=== PATIENT | female | born 1955 | race Caucasian/White ===

== ENCOUNTER 2021-10-06 16:54 | Emergency (ER) | payer OTHER, MEDICAID ==
[~2021-10-06] VITALS: Ht 154.9 cm; Wt 86.2 kg
[2021-10-06 17:14] VITALS: BP_SYST 150
[2021-10-06] MEDS ORDERED: IBUP-1969 PO (18:58)
[2021-10-06 19:07] VITALS: BP_SYST 150
== END 2021-10-06 19:07 | disposition home or self-care (01) ==
LOC: SED 16:54
DX: S16.1XXA Strain of muscle, fascia and tendon at neck level, initial encounter (principal); S00.03XA Contusion of scalp, initial encounter; W17.89XA Other fall from one level to another, initial encounter; Y93.89 Activity, other specified; Y92.89 Other specified places as the place of occurrence of the external cause; Y99.8 Other external cause status
CPT/HCPCS: 70450-TC; 71045; 72125-TC; 76376; 99284

== ENCOUNTER 2022-12-02 22:41 | Emergency (ER) | payer OTHER ==
[~2022-12-02] VITALS: Ht 152.4 cm; Wt 68.9 kg
[~2022-12-02 22:41] MED LIST: IBUP-1969 PO
[2022-12-02 22:58] VITALS: BP_SYST 124
[2022-12-02] MEDS ORDERED: PANTOPRAZOLE SODIUM 40 MG/VIAL (PROTONIX) ONE (23:43)
[2022-12-02] MEDS ORDERED: NACL 0.9% 1,000 ML IV ONE (23:45)
[2022-12-02] MEDS ORDERED: PANTOPRAZOLE SODIUM 80 MG in NS 100 ML IVP ONE (23:45)
[2022-12-02] MEDS ORDERED: ONDANSETRON HCL 4 MG/2 ML VIAL IVP ONE (23:45)
[2022-12-03 00:22] LABS: CALCIUM 8.5 mg/dL (8.4-11.0); CREATININE 1.18 mg/dL (0.55-1.30)
[2022-12-03 00:28] LABS: BASOPHILS % (AUTO) 0.3 % (0.0-2.0); EOSINOPHILS % (AUTO) 0.1 % (0.0-4.0); HEMATOCRIT 36.5 % (36-48); HEMOGLOBIN 12.3 g/dL (12.0-16.0); LYMPHOCYTES # (AUTO) 0.4 K/uL (1.0-5.5); LYMPHOCYTES % (AUTO) 2.8 % (20.5-51.5); MEAN CORPUSCULAR HEMOGLOBIN 28 pg (27-31); MEAN CORPUSCULAR HGB CONC 34 % (32-36); MEAN CORPUSCULAR VOLUME 84 fL (79.0-98.0); MONOCYTES # (AUTO) 0.7 K/uL (0.0-1.0); MONOCYTES % (AUTO) 5.3 % (1.7-9.3); NEUTROPHILS # (AUTO) 12.8 K/uL (1.8-7.7); NEUTROPHILS % (AUTO) 91.5 % (40.0-70.0); PLATELET COUNT (AUTO) 195 K/uL (130-430); RED BLOOD CELL COUNT(AUTO) 4.34 MIL/uL (4.2-6.2); RED CELL DISTRIBUTION WIDTH 12.5 % (9.0-15.0)
[2022-12-03 00:38] LABS: ALBUMIN 3.6 g/dL (3.4-4.8); TOTAL BILIRUBIN 1.4 mg/dL (0.0-1.0)
[2022-12-03 00:54] LABS: BILIRUBIN,URINE NEGATIVE (NEGATIVE); BLOOD, URINE 3+ (NEGATIVE); CLARITY/URINE CLOUDY (CLEAR); COLOR,URINE YELLOW (YELLOW); GLUCOSE,URINE NEGATIVE (NEGATIVE); KETONES,URINE TRACE (NEGATIVE); LEUKOCYTE ESTERASE ,URINE TRACE (NEGATIVE); NITRITE, URINE POSITIVE (NEGATIVE); PH,URINE 8.5 (5.0-8.0); PROTEIN URINE NEGATIVE (NEGATIVE); UROBILINOGEN,URINE 0.2 (0.2-1.0)
[2022-12-03 01:16] LABS: BACTERIA,URINE MANY /HPF (None Seen)
[2022-12-03 01:17] LABS: RBC,URINE 20-50 /HPF (0-3)
[2022-12-03] MEDS ORDERED: cefTRIAXone 1 GM IVPB PREMIX 50 ML IV ONE ×2 (03:00→03:01)
[2022-12-03] MEDS ORDERED: ONDA-8 TL (03:26)
[2022-12-03] MEDS ORDERED: CIPR500T5 PO (03:26)
[2022-12-03 04:48] VITALS: BP_SYST 117
== END 2022-12-03 04:48 | disposition home or self-care (01) ==
LOC: SED 22:41
DX: N39.0 Urinary tract infection, site not specified (principal); R11.2 Nausea with vomiting, unspecified; R50.9 Fever, unspecified; R53.1 Weakness; E11.9 Type 2 diabetes mellitus without complications; Z79.899 Other long term (current) drug therapy
CPT/HCPCS: 99285; 74176; 96375; 96361; 80053; 81000; 82962; 85025; 87040; 87086; 87186; 36415; 76376; 83605; 96365; J2405; C9113; J7030; J0696

== ENCOUNTER 2022-12-16 15:08 | Emergency (ER) | payer OTHER ==
[~2022-12-16] VITALS: Ht 162.6 cm; Wt 72.6 kg
[~2022-12-16 15:08] MED LIST changes: +CIPR500T5 PO; +ONDA-8 TL
[2022-12-16 15:09] VITALS: BP_SYST 123
[2022-12-16 15:41] LABS: BASOPHILS % (AUTO) 0.3 % (0.0-2.0); EOSINOPHILS # (AUTO) 0.1 K/uL (0.0-0.4); EOSINOPHILS % (AUTO) 0.6 % (0.0-4.0); HEMATOCRIT 28.9 % (36-48); HEMOGLOBIN 10.1 g/dL (12.0-16.0); LYMPHOCYTES # (AUTO) 1.7 K/uL (1.0-5.5); LYMPHOCYTES % (AUTO) 21.6 % (20.5-51.5); MEAN CORPUSCULAR HEMOGLOBIN 29 pg (27-31); MEAN CORPUSCULAR HGB CONC 35 % (32-36); MEAN CORPUSCULAR VOLUME 83 fL (79.0-98.0); MONOCYTES # (AUTO) 0.5 K/uL (0.0-1.0); MONOCYTES % (AUTO) 6.2 % (1.7-9.3); NEUTROPHILS # (AUTO) 5.6 K/uL (1.8-7.7); NEUTROPHILS % (AUTO) 71.3 % (40.0-70.0); PLATELET COUNT (AUTO) 358 K/uL (130-430); RED BLOOD CELL COUNT(AUTO) 3.49 MIL/uL (4.2-6.2); RED CELL DISTRIBUTION WIDTH 12.2 % (9.0-15.0); WHITE BLOOD COUNT (AUTO) 7.8 K/uL (4.8-10.8)
[2022-12-16 15:58] LABS: ANION GAP 5 (5-15); CALCIUM 8.4 mg/dL (8.4-11.0); CHLORIDE 103 mmol/L (98-107); GFR AFRICAN AMERICAN 57 mL/min (>90); GLUCOSE 139 mg/dL (70-99); UREA NITROGEN, BLOOD 13 mg/dL (8-21)
[2022-12-16 16:03] LABS: ALANINE AMINOTRANSFERASE 23 U/L (12-78); ALBUMIN 2.8 g/dL (3.4-4.8); ASPARTATE AMINOTRANSFERASE 10 U/L (10-37); TOTAL BILIRUBIN 0.5 mg/dL (0.0-1.0)
[2022-12-16 17:41] VITALS: BP_SYST 123
== END 2022-12-16 17:41 | disposition home or self-care (01) ==
LOC: SED 15:08
DX: R06.02 Shortness of breath (principal); I95.89 Other hypotension; I10 Essential (primary) hypertension; E11.9 Type 2 diabetes mellitus without complications; Z79.899 Other long term (current) drug therapy
CPT/HCPCS: 36415; 71045; 80053; 82962; 83605; 83880; 84484; 85025; 93005; 99285

== ENCOUNTER 2022-12-27 21:01 | Emergency (ER) | payer OTHER ==
[~2022-12-27] VITALS: Ht 152.4 cm; Wt 70.8 kg
[2022-12-27 21:11] VITALS: BP_SYST 117
--- NOTE | 2022-12-27 21:11 | NUR ---
Triaged and placed patient back to the waiting room. No acute respiratory distress at this time. VSS. Informed patient to notify ED staff for any changes in condition or worsening of symptoms while waiting to be seen by a provider. Patient verbalized understanding.
[2022-12-27 21:28] LABS: BILIRUBIN,URINE NEGATIVE (NEGATIVE); BLOOD, URINE 3+ (NEGATIVE); CLARITY/URINE CLEAR (CLEAR); COLOR,URINE YELLOW (YELLOW); GLUCOSE,URINE NEGATIVE (NEGATIVE); KETONES,URINE NEGATIVE (NEGATIVE); LEUKOCYTE ESTERASE ,URINE TRACE (NEGATIVE); NITRITE, URINE NEGATIVE (NEGATIVE); PROTEIN URINE NEGATIVE (NEGATIVE); UROBILINOGEN,URINE 0.2 (0.2-1.0)
[2022-12-27 21:36] LABS: BACTERIA,URINE FEW /HPF (None Seen); MUCUS,URINE None Seen /LPF (None Seen); RBC,URINE 0-3 /HPF (0-3)
--- NOTE | 2022-12-27 21:48 | NUR ---
Patient placed in ER Hallway 2 for evaluation. Bed in lowest position with siderails up. Instructed to notify ED staff for any changes in condition or worsening of symptoms. Patient verbalized understanding.
--- NOTE | 2022-12-27 21:49 | NUR ---
Dr. MCNAMARA at bedside examining the patient.
[2022-12-27] MEDS ORDERED: cefTRIAXone 1 GM in LIDOCAINE 1%, 20 ML MDV 2.1 ML IM ONE (22:00)
[2022-12-27] MEDS ORDERED: NITR-85 PO (22:21)
[2022-12-27 22:23] VITALS: BP_SYST 132
--- NOTE | 2022-12-27 22:23 | NUR ---
Patient given written and verbal discharge instructions BY DR. MCNAMARA and verbalizes understanding. ER MD discussed with patient the results and treatment provided. Patient in stable condition. ID arm band removed. Rx of NITROFURANTOIN given. Patient educated on pain management and to follow up with PMD. Pain Scale 0/10. Opportunity for questions provided and answered. Medication side effect fact sheet provided.
== END 2022-12-27 22:23 | disposition home or self-care (01) ==
LOC: SED 21:01
DX: N39.0 Urinary tract infection, site not specified (principal); R53.1 Weakness; R39.198 Other difficulties with micturition; E11.9 Type 2 diabetes mellitus without complications; I10 Essential (primary) hypertension; Z79.899 Other long term (current) drug therapy
CPT/HCPCS: 99283; 81000; 96372; J0696; J2001

== ENCOUNTER 2023-06-07 07:05 | Day surgery (SDC) | payer OTHER ==
[~2023-06-07] VITALS: Ht 154.9 cm; Wt 68.0 kg
[~2023-06-07 07:05] MED LIST changes: +NITR-85 PO
[2023-06-07] MEDS ORDERED: MIDAZOLAM HCL 5 MG/5 ML VIAL ONE (09:10)
[2023-06-07] MEDS ORDERED: fentaNYL CITRATE/PF 100 MCG/2 ML AMP ONE (09:10)
[2023-06-07 09:45] VITALS: O2SAT 95
[2023-06-07 14:30] VITALS: BP_SYST 104; PULSE 74; RESP 18
== END 2023-06-07 11:05 | disposition home or self-care (01) ==
LOC: SDS 07:05 → STU 07:10 → SMU 07:13 → SDS 11:05
PROVIDERS: ATTEND Internal Medicine Gastroenterology
DX: K22.2 Esophageal obstruction (principal); K21.9 Gastro-esophageal reflux disease without esophagitis; M19.90 Unspecified osteoarthritis, unspecified site; I10 Essential (primary) hypertension; E11.9 Type 2 diabetes mellitus without complications; E78.5 Hyperlipidemia, unspecified; G47.30 Sleep apnea, unspecified; Z86.010 Personal history of colon polyps; Z98.51 Tubal ligation status; Z90.49 Acquired absence of other specified parts of digestive tract; Z88.1 Allergy status to other antibiotic agents; Z79.899 Other long term (current) drug therapy
CPT/HCPCS: 43248; 96365; 82962; 99152; J2250; J3010; C1769

== ENCOUNTER 2023-06-13 13:54 | Emergency (ER) | payer OTHER, MEDICAID ==
[~2023-06-13] VITALS: Ht 152.4 cm; Wt 68.0 kg
[2023-06-13 14:08] VITALS: BP_SYST 98; PULSE 79; RESP 18; TEMP 97.6; O2SAT 99
[2023-06-13 15:00] LABS: BASOPHILS % (AUTO) 0.3 % (0.0-2.0); EOSINOPHILS # (AUTO) 0.1 K/uL (0.0-0.4); HEMOGLOBIN 11.6 g/dL (12.0-16.0); LYMPHOCYTES # (AUTO) 1.4 K/uL (1.0-5.5); LYMPHOCYTES % (AUTO) 21.6 % (20.5-51.5); MEAN CORPUSCULAR HEMOGLOBIN 27 pg (27-31); MEAN CORPUSCULAR HGB CONC 33 % (32-36); MEAN CORPUSCULAR VOLUME 82 fL (79.0-98.0); MONOCYTES # (AUTO) 0.5 K/uL (0.0-1.0); MONOCYTES % (AUTO) 8.1 % (1.7-9.3); NEUTROPHILS # (AUTO) 4.3 K/uL (1.8-7.7); PLATELET COUNT (AUTO) 256 K/uL (130-430); RED BLOOD CELL COUNT(AUTO) 4.27 MIL/uL (4.2-6.2); RED CELL DISTRIBUTION WIDTH 13.4 % (9.0-15.0); WHITE BLOOD COUNT (AUTO) 6.3 K/uL (4.8-10.8)
[2023-06-13 15:08] LABS: CREATININE 1.05 mg/dL (0.55-1.30)
[2023-06-13 15:49] VITALS: BP_SYST 133; RESP 18; TEMP 97.5; O2SAT 98
[2023-06-13] MEDS ORDERED: PIPERACILLIN/TAZOBACTAM 4.5 GM/VIAL (ZOSYN) IV ONE (17:42)
[2023-06-13] MEDS ORDERED: PIPERACILLIN/TAZO 4.5 GM in NS 100 ML IV ONE (17:45)
[2023-06-13] MEDS ORDERED: NACL 0.9% 1,000 ML IV ONE (17:45)
[2023-06-13] MEDS ORDERED: AMOX-423 PO (18:40)
== END 2023-06-13 18:45 | disposition home or self-care (01) ==
LOC: SED 13:54
DX: K20.90 Esophagitis, unspecified without bleeding (principal); J02.9 Acute pharyngitis, unspecified; H92.02 Otalgia, left ear; E11.9 Type 2 diabetes mellitus without complications; I10 Essential (primary) hypertension; Z88.1 Allergy status to other antibiotic agents; Z79.899 Other long term (current) drug therapy
CPT/HCPCS: 99285; 96365; 70491; 80048; 85025; 36415; 76376; J2543